=== PATIENT | male | born 1950 | race Caucasian/White ===

== ENCOUNTER → 2016-09-13 | Outpatient (CLI) | payer OTHER ==
[~2016-09-13] MED LIST: CALC500C70 PO; PANT40TA PO; PRAV80TA2 PO; RANI300C PO
[2016-09-13 17:52] LABS: BASO % 0.1 %; BASO ABS # 0.01 K/uL (0-0.2); COMPLETE YES; EOS % 0.9 %; IG% 0.1 %; LYMPH % 17.5 %; LYMPH ABS # 1.32 K/uL (1.2-3.4); MEAN CELL VOLUME 87.6 fL (80-100); MEAN CORPUSCULAR HEMOGLOBIN 30.8 pg (25-34); MEAN CORPUSCULAR HGB CONC 35.1 g/dl (32-36); MEAN PLATELET VOLUME 10.9 fL (7.4-10.4); MONO % 6.5 %; NEUT % 74.9 %; PLATELET COUNT 220 K/uL (130-400); RED BLOOD COUNT 4.68 M/uL (4.7-6.1); WHITE BLOOD COUNT 7.54 K/uL (4.8-10.8)
[2016-09-13 18:20] LABS: ALT/SGPT 46 U/L (12-78); AST/SGOT 25 U/L (15-37); BLOOD UREA NITROGEN 15 mg/dl (7-18); BUN/CREATININE RATIO 14.9 (10-20); CALCIUM 8.9 mg/dl (8.5-10.1); CARBON DIOXIDE 26 mmol/L (21-32); CHLORIDE 108 mmol/L (98-107); CHOLESTEROL 177 mg/dl (0-200); GLUCOSE 77 mg/dl (70-99); POTASSIUM 3.9 mmol/L (3.5-5.1); SODIUM 142 mmol/L (136-145); TRIGLYCERIDES 101 mg/dl (0-150); VERY LOW DENSITY LIPOPROT CALC 20 mg/dl
[2016-09-13 18:47] LABS: ALB/GLOB RATIO 1.2 (0.9-2); ALKALINE PHOSPHATASE 61 U/L (45-117); CHOLESTEROL/HDL RATIO 3.2; HDL CHOLESTEROL 55 mg/dl; LDL CHOLESTEROL CALCULATED 102 mg/dl
== END ==
LOC: C.LABBFT 12:22
PROVIDERS: ATTEND Internal Medicine Pulmonary Disease
DX: E78.5 Hyperlipidemia, unspecified (principal); N52.9 Male erectile dysfunction, unspecified; D62 Acute posthemorrhagic anemia

== ENCOUNTER → 2017-06-05 | Outpatient (CLI) | payer OTHER ==
[2017-06-05 12:31] LABS: BASO % 0.2 %; BASO ABS # 0.01 K/uL (0-0.2); EOS % 2.8 %; EOS ABS # 0.13 K/uL (0-0.5); HEMATOCRIT 42.5 % (42-52); LYMPH % 29.5 %; LYMPH ABS # 1.39 K/uL (1.2-3.4); MEAN CELL VOLUME 88.2 fL (80-100); MEAN CORPUSCULAR HEMOGLOBIN 31.1 pg (25-34); MEAN CORPUSCULAR HGB CONC 35.3 g/dl (32-36); MEAN PLATELET VOLUME 10.6 fL (7.4-10.4); MONO % 7.4 %; MONO ABS # 0.35 K/uL (0.11-0.59); NEUT % 60.1 %; NEUT ABS # 2.83 K/uL (1.4-6.5); PLATELET COUNT 211 K/uL (130-400); RED CELL DISTRIBUTION WIDTH CV 12.2 % (11.5-14.5); WHITE BLOOD COUNT 4.71 K/uL (4.8-10.8)
[2017-06-05 14:41] LABS: BLOOD UREA NITROGEN 15 mg/dl (7-18); CARBON DIOXIDE 27 mmol/L (21-32); CREATININE 0.96 mg/dl (0.60-1.40); GLUCOSE 93 mg/dl (70-99); POTASSIUM 4.2 mmol/L (3.5-5.1); SODIUM 138 mmol/L (136-145)
[2017-06-05 14:52] LABS: ALKALINE PHOSPHATASE 48 U/L (45-117); ALT/SGPT 49 U/L (12-78); AST/SGOT 26 U/L (15-37); CHOLESTEROL 235 mg/dl (0-200); LDL CHOLESTEROL CALCULATED 133 mg/dl; TOTAL PROTEIN 7.5 gm/dl (6.4-8.2)
== END | disposition home or self-care (01) ==
LOC: C.LABBFT 09:20
PROVIDERS: ATTEND Internal Medicine
DX: Z00.00 Encounter for general adult medical examination without abnormal findings (principal); E78.5 Hyperlipidemia, unspecified

== ENCOUNTER → 2018-01-09 | Outpatient (CLI) | payer OTHER ==
[2018-01-09 17:56] LABS: ALBUMIN 3.8 gm/dl (3.4-5.0)
== END | disposition home or self-care (01) ==
LOC: C.LABBFT 11:13
PROVIDERS: ATTEND Internal Medicine
DX: R94.5 Abnormal results of liver function studies (principal)

== ENCOUNTER 2023-11-04 09:43 | Observation (INO) ==
--- NOTE | 2023-10-25 13:27 | PAT Medication Instructions ---
Medication Instructions Date of Service October 25, 2023 Home Medications Medication Instructions Recorded losartan 100 mg tablet 100 mg PO QAM #90 tabs 07/30/23 triamterene 37.5 1 tab PO QAM #90 tabs 08/20/23 mg-hydrochlorothiazide 25 mg tablet oxycodone 5 mg tablet See Rx Instructions PO Q8H PRN 10/11/23 pain 3 days #18 tabs cholecalciferol (vitamin D3) 50 mcg (2,000 unit) capsule (Vitamin D3) 50 mcg PO QAM famotidine 20 mg tablet (Pepcid) 20 mg PO QAM multivitamin 1 tab PO QAM calcium-vit D3-ferrous fumarate 600 mg-125 unit-18 mg tablet 1 tab PO QAM amlodipine 5 mg tablet 5 mg PO QAM atorvastatin 80 mg tablet 80 mg PO QAM tadalafil 20 mg tablet (Cialis) 20 mg PO DAILY PRN sexual activity losartan 100 mg tablet 100 mg PO QAM triamterene 37.5 mg-hydrochlorothiazide 25 mg tablet 1 tab PO QAM oxycodone 5 mg tablet See Rx Instructions PO Q8H PRN pain DO NOT take the morning of surgery cholecalciferol (vitamin D3) 50 mcg (2,000 unit) capsule (Vitamin D3) 50 mcg PO QAM multivitamin 1 tab PO QAM calcium-vit D3-ferrous fumarate 600 mg-125 unit-18 mg tablet 1 tab PO QAM tadalafil 20 mg tablet (Cialis) 20 mg PO DAILY PRN sexual activity losartan 100 mg tablet 100 mg PO QAM triamterene 37.5 mg-hydrochlorothiazide 25 mg tablet 1 tab PO QAM Take morning of surgery With a small sip of water, OTHERWISE NOTHING TO EAT OR DRINK AFTER MIDNIGHT: famotidine 20 mg tablet (Pepcid) 20 mg PO QAM amlodipine 5 mg tablet 5 mg PO QAM atorvastatin 80 mg tablet 80 mg PO QAM oxycodone 5 mg tablet See Rx Instructions PO Q8H PRN pain (if needed) Take evening before surgery oxycodone 5 mg tablet See Rx Instructions PO Q8H PRN pain (if needed) Other Notes If you have any questions please call us at [phone] or [phone] or [phone] or [phone]
--- NOTE | 2023-11-01 13:15 | Anesthesiology Consultation ---
Date of Service November 01, 2023 Assessment & Plan (1) Encounter for pre-operative examination: - Case discussed in detail with Dr. Nicholson who advised patient is acceptable to proceed. Chart Review Chart Review: Acceptable Risk for Surgery and Patient seen in Pre Admission Testing Teaching & Discussion Pre-Anesthesia Teaching/Discussion Notes: Instructed NPO after midnight before surgery, except medications with 15 cc of water. Medication instructions provided according to the PAT guidelines. History Surgery Operation Date: 11/04/23 11:35 Proposed Procedures p L2-L3, L3-L4 Lumbar Decompression - Mike Singh MD Height/Weight Height: 5 ft 10 in Weight: 94.5 kg Allergies Allergy/AdvReac Type Severity Reaction Status Date / Time No Known Allergies Allergy Verified 10/25/23 11:48 Medications Home Medications Medication Instructions Recorded Confirmed Last Taken cholecalciferol (vitamin D3) 50 50 mcg PO QAM 01/27/21 11/04/23 11/03/23 09:00 mcg (2,000 unit) capsule (Vitamin D3) famotidine 20 mg tablet (Pepcid) 20 mg PO QAM 01/27/21 11/04/23 11/04/23 07:30 multivitamin 1 tab PO QAM 01/27/21 11/04/23 11/03/23 09:00 calcium-vit D3-ferrous fumarate 1 tab PO QAM 07/03/23 11/04/23 11/03/23 09:00 600 mg-125 unit-18 mg tablet amlodipine 5 mg tablet (Norvasc) 5 mg PO QAM 07/22/23 11/04/23 11/04/23 07:30 atorvastatin 80 mg tablet (Lipitor) 80 mg PO QAM 07/22/23 11/04/23 11/03/23 09:00 tadalafil 20 mg tablet (Cialis) 20 mg PO DAILY PRN sexual activity 07/22/23 11/04/23 Unknown triamterene 37.5 1 tab PO QAM #90 tabs 08/20/23 11/04/23 11/03/23 09:00 mg-hydrochlorothiazide 25 mg tablet oxycodone 5 mg tablet See Rx Instructions PO Q8H PRN 10/11/23 11/04/23 11/02/23 08:00 pain 3 days #18 tabs losartan 100 mg tablet (Cozaar) 100 mg PO QAM 11/04/23 11/04/23 11/04/23 07:30 Active Medications Generic Name Dose Route Start Last Admin Trade Name Rudy PRN Reason Stop Dose Admin Lactated Ringer's 1,000 mls @ 15 mls/hr 11/04/23 06:00 11/04/23 10:20 Lr IV 11/05/23 05:59 15 mls/hr .Q24H PUNEET Administration Lactated Ringer's 1,000 mls @ 60 mls/hr 11/04/23 06:00 11/04/23 10:35 Lr IV 11/04/23 22:39 Not Given .[id number] PUNEET Past Medical History Medical History History of blood transfusion (~2014) Bilateral lower extremity edema chronic-denies change or worsening Degenerative disc disease Hypertension controlled, stable per pt Hyperlipidemia Hearing loss History of COVID-19 05/22, resolved Umbilical hernia present "small" History of GI bleed (~2014) GERD (gastroesophageal reflux disease) controlled, stable per pt Patient denies h/o stroke, seizures, heart attack, heart failure, DM, or blood clots/DVTs. Exercise / Class Metabolic Activity II 4-5 Yardwork/Stairs/Walk up hill (shortness of breath walking up hill, ongoing since onset of back and left leg dysfunction-denies change or worsening; denies chest discomfort) Past Family History Family History Unknown Coronary heart disease Father Cancer Uncertain details Sister Liver cancer Breast cancer Cancer Mother Diabetes Obesity Other No family history of adverse response to anesthesia Denies family history of Ovarian cancer Prostate cancer Myocardial infarction Colorectal cancer Past Surgical History Surgical History History of repair of retinal tear by laser photocoagulation left Hx of colonoscopy with polypectomy History of esophagogastroduodenoscopy (EGD) History of vasectomy History of shoulder surgery left/right Past Anesthesia History No Hx of Anesthesia Complications and No Family Hx of Anesthesia Complications History of PONV No Hx of PONV and No Hx of Motion Sickness Social History Smoking Status: Never smoker Do You Dip or Chew Tobacco: No (quit 2009 *used tobacco leafs) Hx Alcohol Use: Yes Alcohol type: beer alcohol intake frequency: 3 or more drinks per day Alcohol Intake Frequency Comment: 2-4 beers daily Hx Substance Use: No substance use type: does not use Review of Systems Patient denies chest pain, snoring, witnessed apneas, fever, chills, cough, wheezing, or palpitations. Physical Exam Vital Signs Last Vital Signs Temp 36.8 C 11/04/23 10:17 Pulse 86 11/04/23 10:17 Resp 20 11/04/23 10:17 BP 184/83 H 11/04/23 10:17 Pulse Ox 96 11/04/23 10:17 O2 Del Method Room Air 11/04/23 10:17 Vitals BP 150/79 P 75 TEMP 98.5 SP02 97% on RA RESP 18 Physical Patient resting comfortably in chair in no acute distress, alert and oriented, responding appropriately throughout visit Full cervical extension range of motion without pain TMD 3.5 finger breadths Mallampati Score 2 Dentition: one broken tooth, denies loose teeth, caps/crowns, implants or bridges Lungs: normal respiratory effort. Good air movement, clear throughout to auscultation, no adventitious breath sounds Cardiac: regular rate and rhythm, no murmurs noted Carotid arteries: negative bruit bilat Lab Results Anesthesia Preop Results Results Anesthesia Widget: WBC 5.21 K/ul (4.8-10.8) 11/01/23 Hgb 12.8 g/dl (14.0-18.0) L 11/01/23 Hct 36.5 % (42.0-52.0) L 11/01/23 Plt 235 K/uL (130-400) 11/01/23 Na 140 mmol/L (136-145) 11/01/23 K 4.2 mmol/L (3.5-5.1) 11/01/23 Cl 108 mmol/L (98-107) H 11/01/23 CO2 27 mmol/L (21-32) 11/01/23 BUN 17 mg/dl (6-23) 11/01/23 Creat 0.90 mg/dl (0.6-1.4) 11/01/23 Glucose Level 116 mg/dl (70-99(Fasting)) H 11/01/23 PT 10.1 Seconds (9.0-12.0) 11/01/23 PTT 23 Seconds (21-31) 11/01/23 INR 0.9 (0.9-1.1) 11/01/23 Blood Type A Positive 11/01/23 Antibody Screen NEGATIVE 11/01/23 Testing Laboratory Results Similar H&H in comparison to 05/13/2023. Electrocardiogram Date: 07/05/23 NSR, rate 79 bpm
[2023-11-04] MEDS ORDERED: ONDANSETRON INJ 2 MG/ML 2 ML VIAL ONE (09:45)
[2023-11-04] MEDS ORDERED: ROCURONIUM BROMIDE 10 MG/ML 5 ML VIAL IV ONE ×2 (09:45→12:49)
[2023-11-04] MEDS ORDERED: MIDAZOLAM HCL 1 MG/ML 2ML VIAL ONE (09:45)
[2023-11-04] MEDS ORDERED: DEXAMETHASONE SOD INJ 4 MG/ML VIAL ONE (09:45)
[2023-11-04] MEDS ORDERED: LIDOCAINE 2% 2 ML VIAL/AMP(20MG/ML) INFIL ONE (09:45)
[2023-11-04] MEDS ORDERED: fentaNYL citrate PF 100 MCG/2 ML VIAL ONE ×2 (09:45→11:41)
[2023-11-04] MEDS ORDERED: SUGAMMADEX SODIUM 200 MG/2 ML VIAL IV ONE (09:46)
[2023-11-04] MEDS: LR 15ML/HR IV SCH (10:20)
--- NOTE | 2023-11-04 10:33 | History & Physical Bridge Note ---
Date of Service November 04, 2023 History & Physical Bridge Note I have examined the patient, reviewed the History & Physical and in the interval since the performance of the History & Physical I have noted the following changes of clinical significance: no changes noted
[2023-11-04] MEDS: LR 60ML/HR IV SCH (10:35)
[2023-11-04] MEDS ORDERED: ATROPINE SULFATE 0.1 MG/ML 10ML SYR IV PRN (10:38)
[2023-11-04] MEDS ORDERED: HYDROmorphone INJ 1 MG/ML SYRINGE IV PRN (10:38)
[2023-11-04] MEDS ORDERED: DROPERIDOL 5 MG/2 ML VIAL IV PRN (10:38)
[2023-11-04] MEDS ORDERED: ePHEDrine sulfate 50 MG/ML AMP IV PRN (10:38)
[2023-11-04] MEDS: ceFAZolin 2000MG 2,000 MG/15 ML SYR IV SCH (11:20)
[2023-11-04] MEDS ORDERED: PHENYLEPHRINE 100MCG/ML 10ML SYR IV ONE (12:15)
[2023-11-04] MEDS ORDERED: KETOROLAC 30 MG/ML VIAL ONE (13:34)
[2023-11-04] MEDS ORDERED: HYDROmorphone INJ 2 MG/ML SYR/VIAL ONE (14:08)
[2023-11-04] MEDS: BUPIVACAINE 0.5 % 5 MG/1 ML MPF 30ML VIAL ONE (14:28)
[2023-11-04] MEDS: FLOSEAL HEMOSTATIC MATRIX 5ML TOP ONE (14:28)
[2023-11-04] MEDS: THROMBIN 5000 UNITS KIT ONE (14:28)
[2023-11-04] MEDS: VANCOMYCIN HCL 1000MG/20ML VIAL ONE (14:28)
[2023-11-04] MEDS: GELATIN SPONGE 12-7MM ONE (14:28)
--- NOTE | 2023-11-04 15:11 | Post Operative Brief Note ---
PG Immediate Post Op with CF Date of Surgery November 04, 2023 Pre & Post Diagnosis Operation Date: 11/04/23 11:35 Pre-Op Diagnosis: 1. Lumbar disc herniation with radiculopathy, 2. Spinal stenosis of lumbar region, 3. Bulging of lumbar intervertebral disc Post-Op Diagnosis: 1. Lumbar disc herniation with radiculopathy, 2. Spinal stenosis of lumbar region, 3. Bulging of lumbar intervertebral disc I identified the patient and participated in the time-out.: Yes Procedure Operation Date: 11/04/23 11:35 Actual Procedures p L2-L3, L3-L4 Lumbar Decompression(Not Applicable) - Mike Singh MD Surgeon Mike Singh MD Director Of Student Aid none Estimated Blood Loss 100 Findings Consistent with Post-Op Diagnosis Specimens Specimen Description: no specimen per surgeon Drains Marin Catheter (marin inserted per anesthesia request, 175ml urine drained)
[2023-11-04] MEDS ORDERED: DO NOT ADMINISTER PNEUMOCOCCAL VACCINE PRN (15:12)
[2023-11-04] MEDS ORDERED: NALOXONE HCL 0.4 MG/1 ML VIAL/CARP IV PRN (15:12)
[2023-11-04] MEDS ORDERED: DO NOT ADMINISTER FLU VACCINE PRN (15:12)
[2023-11-04] MEDS ORDERED: ONDANSETRON 4 MG OD TAB PO PRN (15:12)
[2023-11-04] MEDS ORDERED: PROMETHAZINE HCL 12.5 MG in SODIUM CHLORIDE 0.9% 50 ML IV PRN (15:12)
[2023-11-04] MEDS ORDERED: ONDANSETRON INJ 2 MG/ML 2 ML VIAL IV PRN (15:12)
[2023-11-04] MEDS ORDERED: ACETAMINOPHEN 500 MG TAB PO PRN (15:12)
[2023-11-04] MEDS ORDERED: hydrOXYzine HCl 25 MG TAB PO PRN (15:12)
[2023-11-04] MEDS ORDERED: ALUMINUM/MAGNESIUM SUSP 30 ML UDC PO PRN (15:12)
[2023-11-04] MEDS ORDERED: FAMOTIDINE 20 MG TAB PO PRN (15:12)
[2023-11-04] MEDS ORDERED: METOCLOPRAMIDE HCL INJ 5 MG/ML 2 ML VIAL IV PRN (15:12)
[2023-11-04] MEDS ORDERED: SOD PHOSPHATE/SOD BIPHOSPHATE ENEMA 132 ML BTL PR PRN (15:12)
[2023-11-04] MEDS ORDERED: LORazepam 0.5 MG in SYRINGE 0.25 ML IV PRN (15:12)
[2023-11-04] MEDS ORDERED: MAGNESIUM HYDROXIDE SUSP 30 ML UDC PO PRN (15:12)
[2023-11-04] MEDS ORDERED: HYDROmorphone INJ 0.5 MG/0.5 ML SYR IV PRN (15:12)
[2023-11-04] MEDS ORDERED: bisacodyL 10 MG SUPP PR PRN (15:12)
[2023-11-04] MEDS ORDERED: diphenhydrAMINE Capsule 25 MG CAP PO PRN (15:12)
[2023-11-04] MEDS ORDERED: LORazepam 0.5 MG TAB PO PRN (15:12)
[2023-11-04] MEDS ORDERED: ACETAMINOPHEN 1,000 MG/100 ML VIAL IV PRN (15:12)
[2023-11-04] MEDS: LACTATED RINGER'S 1,000 ML IV SCH (16:19)
--- NOTE | 2023-11-04 16:49 | Hospitalist Consultation ---
Date of Consultation November 04, 2023 Assessment & Plan (1) Lumbar disc herniation with radiculopathy: VTE / Pain / Bowel management per primary orthopedic spine team (2) Hypertension: Continue amlodipine Will preliminary hold his other anti-hypertensives on POD#1 pending serial BP measurements, will defer to medical team tomorrow regarding timing of restarting these (3) Gastroesophageal reflux disease: No current symptoms Continue famotidine (4) Hyperlipidemia: No reason to hold atorvastatin from medicine aspect, not prescribed by ortho spine History of Present Illness Reason for Consultation: medical management, surgery Attending Physician: Mike Singh MD History of Present Illness Delon Weaver is a 73 year old male who POD#0 L2-L3, L3-L4 Lumbar Decompression. Estimated blood loss 100ml. Did not take any of his blood pressure medications this morning. No question or concerns for medicine. Allergies Allergy/AdvReac Type Severity Reaction Status Date / Time No Known Allergies Allergy Verified 10/25/23 11:48 Home Medications Medication Instructions Recorded Confirmed Type cholecalciferol (vitamin D3) 50 50 mcg PO QAM 01/27/21 11/04/23 History mcg (2,000 unit) capsule (Vitamin D3) famotidine 20 mg tablet (Pepcid) 20 mg PO QAM 01/27/21 11/04/23 History multivitamin 1 tab PO QAM 01/27/21 11/04/23 History calcium-vit D3-ferrous fumarate 1 tab PO QAM 07/03/23 11/04/23 History 600 mg-125 unit-18 mg tablet amlodipine 5 mg tablet (Norvasc) 5 mg PO QAM 07/22/23 11/04/23 History atorvastatin 80 mg tablet (Lipitor) 80 mg PO QAM 07/22/23 11/04/23 History tadalafil 20 mg tablet (Cialis) 20 mg PO DAILY PRN sexual activity 07/22/23 11/04/23 History triamterene 37.5 1 tab PO QAM #90 tabs 08/20/23 11/04/23 Rx mg-hydrochlorothiazide 25 mg tablet oxycodone 5 mg tablet See Rx Instructions PO Q8H PRN 10/11/23 11/04/23 Rx pain 3 days #18 tabs losartan 100 mg tablet (Cozaar) 100 mg PO QAM 11/04/23 11/04/23 History Patient History Medical History History of blood transfusion (~2014) Bilateral lower extremity edema chronic-denies change or worsening Degenerative disc disease Hypertension controlled, stable per pt Hyperlipidemia Hearing loss History of COVID-19 05/22, resolved Umbilical hernia present "small" History of GI bleed (~2014) GERD (gastroesophageal reflux disease) controlled, stable per pt Surgical History History of repair of retinal tear by laser photocoagulation left Hx of colonoscopy with polypectomy History of esophagogastroduodenoscopy (EGD) History of vasectomy History of shoulder surgery left/right Family History Unknown Coronary heart disease Father Cancer Uncertain details Sister Liver cancer Breast cancer Cancer Mother Diabetes Obesity Other No family history of adverse response to anesthesia Denies family history of Ovarian cancer Prostate cancer Myocardial infarction Colorectal cancer Social History (Updated 05/20/23 @ 10:09 by Ander Nava MD) Smoking Status: Never smoker Tobacco Type: Smokeless Tobacco (Dip or Chew) Second Hand Exposure: Yes (as a child); Do You Dip or Chew Tobacco: No (quit 2009 *used tobacco leafs); Hx Alcohol Use: Yes Alcohol type: beer Alcohol Intake Frequency: 4 or More x per/Week Alcohol Intake Frequency Comment: 2-3 daily Hx Substance Use: No Preferred Language: Brazilian Communication Ability: Effective Visual Impairment: No Limitations Hearing Ability: Hard of Hearing Stem Roller Operator Required: No Beliefs That Will Affect Care: None marital status: Current Living Situation: Spouse current occupational status: retired 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 How many Children do You have: 3 Feels Safe at Home: Yes Safety Concerns: Feels Safe At This Time Childhood Exposure to Second-Hand Smoke: Yes Diet: regular caffeine: Yes (coffee in AM) during the past year weight has: remained stable Dental Care, Regularly: Yes Physical Activity Frequency: Daily Seatbelt Use: always Sunscreen Use: Yes Assistive Devices: Cane and Glasses Assistive Devices Comment: reading glasses Review of Systems Review of Systems: All systems reviewed & are unremarkable except as noted in HPI & below Physical Exam Constitutional: WD/WN, vitals as above Respiratory: normal respiratory effort, lungs clear to auscultation Cardiovascular: RRR, no murmur, no edema Gastrointestinal (Abdomen): normal bowel sounds, soft, nontender, no hepato splenomegaly Musculoskeletal: no cyanosis or clubbing, extremities motor strength 5/5 Skin: no rashes, warm and dry Neurologic: moves all extremities and awake; not confused Motor/Sensory: no sensory deficit Psychiatric: Orientation: alert and oriented x 3 Results & Data Results & Data Vital Signs (Past 12 Hours) Vital Signs Temp Pulse Pulse Resp BP BP Pulse Ox 11/04/23 16:31 36.4 C L 87 16 123/70 92 11/04/23 16:00 11/04/23 16:00 36.4 C L 91 H 16 146/72 H 94 11/04/23 15:45 36.4 C L 88 12 138/57 L 94 11/04/23 15:35 90 15 140/73 96 11/04/23 15:25 92 H 15 148/76 H 98 11/04/23 15:15 91 H 12 135/73 97 11/04/23 15:05 87 12 143/76 H 98 11/04/23 14:59 36.2 C L 91 H 13 155/103 H 99 11/04/23 10:17 36.8 C 86 20 184/83 H 96 O2 Del Method O2 Flow Rate 11/04/23 16:31 Room Air 11/04/23 16:00 Room Air 11/04/23 16:00 Room Air 11/04/23 15:45 Room Air 0 11/04/23 15:35 Oxymask 2 11/04/23 15:25 Oxymask 4 11/04/23 15:15 Oxymask 6 11/04/23 15:05 Oxymask 8 11/04/23 14:59 Oxymask 8 11/04/23 10:17 Room Air PG Care Time/CCT Total # of Minutes Spent Total Time Spent with Patient: Total time spent is greater than 50% in coordination of care (as documented) at patient's floor/unit and/or counseling patient: Coding Level of Care Code 31310 IN/OBS CONSULT LVL 4,60M Diagnoses Lumbar disc herniation with radiculopathy M51.16 Primary hypertension I10 Hypertension type: primary hypertension Gastroesophageal reflux disease without esophagitis K21.9 Esophagitis presence: without esophagitis Mixed hyperlipidemia E78.2 Hyperlipidemia type: mixed hyperlipidemia (2) Hypertension Hypertension type: primary hypertension Qualified Code(s): I10 - Essential (primary) hypertension (3) Gastroesophageal reflux disease Esophagitis presence: without esophagitis Qualified Code(s): K21.9 - Gastro- esophageal reflux disease without esophagitis (4) Hyperlipidemia Hyperlipidemia type: mixed hyperlipidemia Qualified Code(s): E78.2 - Mixed hyperlipidemia
--- NOTE | 2023-11-04 16:57 | Operative Report ---
PG Post Operative Report Pre & Post Diagnosis Operation Date: 11/04/23 11:35 Pre-Op Diagnosis: 1. Lumbar disc herniation with radiculopathy, 2. Spinal stenosis of lumbar region, 3. Bulging of lumbar intervertebral disc Post-Op Diagnosis: 1. Lumbar disc herniation with radiculopathy, 2. Spinal stenosis of lumbar region, 3. Bulging of lumbar intervertebral disc I identified the patient and participated in the time-out.: Yes Procedure Operation Date: 11/04/23 11:35 Actual Procedures p L2-L3, L3-L4 Lumbar Decompression(Not Applicable) - Mike Singh MD Surgeon Mike Singh MD Lunch Cook none Estimated Blood Loss 100 Findings Consistent with Post-Op Diagnosis Specimens None Description of Procedure 1. L2-3 posterior lumbar decompression (84515) 2. L3-4 posterior lumbar decompression (34864) Patient was taken the operating room after adequate anesthesia was carefully positioned prone on the Jose frame. After doing so a preprepped was performed followed by bringing in fluoroscopy where he I then marked for the area of the incision over the stated interspaces. Prep and drape was performed, I began the procedure with a midline incision taken down through the subcutaneous tissues and then down on either side of the spinous processes to the region of the L2-3 and L3-4 interlaminar region. Location was confirmed fluoroscopically, and tissues were then removed exposing the interlaminar region to a proper level to allow for the decompression. Starting at the L3-4 segment, the interspinous ligament and majority of the spinous process was then removed exposing the interspace at L3-4. Bilateral laminectomy was performed along the inferior laminar edge of L3 across the superior laminar edge of L4 along the medial facets on both sides which also included removing epidural fat. This decompressed the L3 and L4 nerve roots, Floseal was applied. I then moved to the L2-3 segment adjusting the microscope for visualization in this region. The inferior aspect of the spinous process of L2 was removed along the superior lamina/spinous process of L3. The ligamentum flavum in a similar fashion was then thinned and then removed and bilateral laminectomies performed along the inferior laminar edge of L2 and across the superior laminar edge of L3 and then from here I moved down the medial aspect the facets and undercut the facets on both sides. This completed the decompression of the segment, I then mobilized the dural contents from the right to the left exposing the disc fragment adding to the stenosis. This was then mobilized and removed 1 large piece along with some additional smaller fragments. I also went into the disc base removing some remaining disc material, completing a decompression of the segment. Operative sites were inspected no issues were noted, Floseal along with bipolar cautery were utilized to address any epidural bleeding. Operative site was irrigated followed by then injecting local into the operative region in the musculature paraspinal, vancomycin powder was placed in the operative site was closed with a layer of 0 Vicryl sutures reattaching the supraspinous ligament were available, 2-0 Vicryl sutures and shayan for the skin. Sterile dressing was applied, the patient tolerated procedure well was taken recovery room in satisfactory condition. I attest to the content of the Intraoperative Record and any orders documented therein. Any exceptions are noted below.
--- NOTE | 2023-11-04 18:26 | Anesthesiology Progress Note ---
Date of Service November 04, 2023 Anesthesia Post Procedure Vital Signs Vital Signs: Temp Pulse Pulse Resp BP BP Pulse Ox 11/04/23 18:00 37.0 C 88 18 133/73 94 11/04/23 17:08 37.2 C 86 16 128/70 95 11/04/23 16:31 36.4 C L 87 16 123/70 92 11/04/23 16:00 11/04/23 16:00 36.4 C L 91 H 16 146/72 H 94 11/04/23 15:45 36.4 C L 88 12 138/57 L 94 11/04/23 15:35 90 15 140/73 96 11/04/23 15:25 92 H 15 148/76 H 98 11/04/23 15:15 91 H 12 135/73 97 11/04/23 15:05 87 12 143/76 H 98 11/04/23 14:59 36.2 C L 91 H 13 155/103 H 99 11/04/23 10:17 36.8 C 86 20 184/83 H 96 O2 Del Method O2 Flow Rate 11/04/23 18:00 Room Air 11/04/23 17:08 Room Air 11/04/23 16:31 Room Air 11/04/23 16:00 Room Air 11/04/23 16:00 Room Air 11/04/23 15:45 Room Air 0 11/04/23 15:35 Oxymask 2 11/04/23 15:25 Oxymask 4 11/04/23 15:15 Oxymask 6 11/04/23 15:05 Oxymask 8 11/04/23 14:59 Oxymask 8 11/04/23 10:17 Room Air Pain Intensity Lower Back: Pain Intensity: 2 Transfer of Care Handoff Completed per policy Notes Mental Status: alert / awake / arousable Patient Amnestic to Procedure: Yes Nausea / Vomiting: adequately controlled Pain: adequately controlled Airway Patency, RR, SpO2: stable & adequate BP & HR: stable & adequate Hydration State: stable & adequate Anesthetic Complications: no major complications apparent
[2023-11-04] MEDS: DOCUSATE SODIUM/SENNA 50/8.6MG TAB PO SCH (19:48)
[2023-11-04] MEDS: ceFAZolin 1000MG 1,000 MG/7.5 ML SYR IV SCH (19:49)
--- NOTE | 2023-11-04 21:09 | Fluoroscopy Report ---
FL lumbar spine 2-3V CLINICAL HISTORY: L2-L4 LUMBAR DECOMPRESSION TECHNIQUE: 5 views were obtained with the C-arm in the OR with the above procedure. Total fluoroscopy time was 24.2 seconds. Radiation dose was 16.62 mGy. Comparison: Comparison is made to MRI lumbar spine 10/21/2023 FINDINGS/IMPRESSION: Intraoperative images were obtained of L2-L4 lumbar decompression. Please correlate with intraoperative fluoroscopy and operative report. ACT 112: Negative or not required by law. Electronically signed by: Berry Somers M.D. 11/04/2023 9:08 PM
[2023-11-05] MEDS: POLYETHYLENE (MIRALAX) 17 GM PACK PO SCH (05:31)
[2023-11-05] MEDS: oxyCODONE/ACETAMINOPHEN 5mg/325mg TAB PO PRN (05:48)
[2023-11-05 06:49] LABS: Hematocrit (blood only) 34.6 % (42.0-52.0); Hemoglobin 11.9 g/dl (14.0-18.0); Mean Corpuscular Hemoglobin 30.7 pg (25.0-34.0); Mean Corpuscular Hgb Conc 34.4 g/dL (32.0-36.0); Mean Corpuscular Volume 89.2 fL (80.0-100.0); Mean Platelet Volume 9.7 fL (9.4-12.4); Platelet Count 242 K/uL (130-400); RDW Coefficient of Variation 12.1 % (11.5-14.5); RDW Standard Deviation 39.1 fL (36.4-46.3); Red Blood Count 3.88 M/uL (4.70-6.10); White Blood Count 10.32 K/ul (4.8-10.8)
[2023-11-05 07:07] LABS: BUN Creatinine Ratio 21.7 (10-20); Calcium 9.5 mg/dl (8.6-10.3); Creatinine Clr Calc Pharmacy 72.7 ml/min; Est GFR (African American) 81.4 ml/min; Est GFR (Non-African American) 70.3 ml/min
[2023-11-05] MEDS: amLODIPine BESYLATE 5 MG TAB PO SCH (08:18)
[2023-11-05] MEDS: FAMOTIDINE 20 MG TAB PO SCH (08:18)
[2023-11-05] MEDS ORDERED: LOSARTAN POTASSIUM 50 MG TAB PO SCH (09:00)
[2023-11-05] MEDS ORDERED: TRIAMTERENE/HCTZ 37.5/25MG TAB PO SCH (09:00)
--- NOTE | 2023-11-05 11:33 | Orthopedic Progress Note ---
Date of Service November 05, 2023 Assessment & Plan (1) Lumbar disc herniation with radiculopathy: (2) Disc degeneration, lumbosacral: (3) Spinal stenosis of lumbar region: (4) Bulging of lumbar intervertebral disc: (5) Status post lumbar spine surgery for decompression of spinal cord: (6) S/P lumbar laminectomy: Plan 1. Patient doing well status post lumbar spine surgery. * Ambulate as tolerated. * Avoid any strenuous activity or lifting. 2. May remove dressing on third day after surgery to shower and then briefly wash the incision and surgical site with soap and water and then dry with a clean towel or cloth. Then, cover with a sterile dry bandage. 3. Follow-up with Dr. Singh approximately 2 weeks after surgery. Admission and Anticipated Discharge Date Admission Date: November 04, 2023 Subjective Patient is POD#1 s/p L2-3 and L3-[address] Singh on 11/04/2023. Patient says that his pain is well-controlled this morning. He is no longer having the pain/paresthesias down his left lower extremity. He only has some mild incisional region back pain with certain movements. Denies CP, SOB, N/V. He has ambulated today with therapy, first using a walker, and then saying he was able to progress to independent walking. Physical Exam Physical Exam: GENERAL: AA&Ox3, NAD. Speech and cognition is intact. Mood and affect is appropriate. Sitting in bedside chair and appears comfortable. RESPIRATORY: Normal respiratory effort with no signs of distress. CHEST/AXILLA: Chest movement symmetrical. No deformities noted. CARDIOVASCULAR: No edema noted. SKIN: [place], warm and dry. BACK: Lumbar dressing c/d/i. MS/EXTREMITY: NVI distally b/l LE. Calves soft/NT. PT/DP intact b/l. Distal sensation of lower legs intact. NEURO: CN II-XII grossly intact with no focal deficits noted. Able to transfer sit to stand w/o assistance. Ambulates normally w/ walker. Awake, alert, and oriented x 3. Distal sensation of lower legs intact. LOWER EXTREMITIES: R Hip flexion 5/5; hip extension 5/5; knee extension 5/5; knee flexion 5/5; ankle dorsiflexion 5/5; ankle plantar flexion 5/5; EHL 5/5 L Hip flexion 5/5; hip extension 5/5; knee extension 5/5; knee flexion 5/5; ankle dorsiflexion 5/5; ankle plantar flexion 5/5; EHL 5/5 Results & Data Vital Signs (Past 12 Hours) Vital Signs Temp Pulse Resp BP Pulse Ox O2 Del Method 11/05/23 08:22 Room Air 11/05/23 07:41 36.7 C 76 16 131/73 99 Room Air 11/05/23 03:00 36.5 C 75 16 145/73 H 99 Room Air Laboratory Results Laboratory Results - last 48 hr 11/05/23 06:23 WBC 10.32 RBC 3.88 L Hgb 11.9 L Hct 34.6 L MCV 89.2 MCH 30.7 MCHC 34.4 RDW Std Deviation 39.1 RDW Coeff of Mulu 12.1 Plt Count 242 MPV 9.7 Sodium 141 Potassium 4.0 Chloride 105 Carbon Dioxide 27 Anion Gap 9 BUN 23 Creatinine 1.06 Est Cr Clr Drug Dosing 72.7 Est GFR ( Amer) 81.4 Est GFR (Non-Af Amer) 70.3 BUN/Creatinine Ratio 21.7 H Glucose 131 H Calcium 9.5 Diagnostic Findings Lumbar Spine X-Ray 11/04/23 11:35 [place] lumbar spine 2-3V CLINICAL HISTORY: L2-L4 LUMBAR DECOMPRESSION TECHNIQUE: 5 views were obtained with the C-arm in the OR with the above procedure. Total fluoroscopy time was 24.2 seconds. Radiation dose was 16.62 mGy. Comparison: Comparison is made to MRI lumbar spine 10/21/2023 FINDINGS/IMPRESSION: Intraoperative images were obtained of L2-L4 lumbar decompression. Please correlate with intraoperative fluoroscopy and operative report. ACT 112: Negative or not required by law. Electronically signed by: Berry Somers M.D. 11/04/2023 9:08 PM
== END 2023-11-05 16:53 | disposition home or self-care (01) ==
LOC: ASU 09:43 → 3E 09:43